=== PATIENT | female | born 1945 | race Caucasian/White ===

== ENCOUNTER 2019-08-23 07:29 | Emergency (ER) | payer MEDICARE ==
[~2019-08-23] VITALS: Ht 165.1 cm; Wt 71.2 kg
[~2019-08-23 07:29] MED LIST: ALLOPURINOL100 MG PO; ASPIRIN81 M1 PO; BACTRIM DS 8001 TA1 PO; FENOFIBRATE160 MG PO; LIPITOR40 MG PO; Lopressor25 MG PO; MACRODANTIN100 MG PO; OXYBUTYNIN5 MG PO; TORADOL10 MG PO; VICODIN ES 7501 TAB PO
[2019-08-23 08:41] LABS: BASO % 0.6 % (0.0-1.0); EOS % 0.6 % (1.0-4.0); HEMATOCRIT 36.1 % (37.0-47.0); HEMOGLOBIN 11.5 g/dl (12.0-16.0); LYMPH # 1.9 10*3/uL (1.3-4.4); LYMPH % 36.6 % (27.0-41.0); MEAN CORPUSCULAR HGB 29.9 pg (27.0-31.0); MEAN CORPUSCULAR HGB CONC 31.9 g/dl (33.0-37.0); MEAN PLATELET VOLUME 10.7 fl (9.6-12.3); MONO # 0.3 10*3/uL (0.1-1.0); MONO % 6.3 % (3.0-9.0); NEUT # 2.9 10*3/uL (2.3-7.9); NEUT % 55.7 % (47.0-73.0); PLATELET COUNT AUTOMATED 262 10*3/uL (130-400); RED BLOOD COUNT 3.84 10*6/uL (4.10-5.10); RED CELL DISTRI WIDTH 15.6 % (0-14.5); WHITE BLOOD COUNT 5.2 10*3/uL (4.8-10.8)
[2019-08-23 08:55] LABS: ALBUMIN 3.9 gm/dl (3.1-4.5); CREATININE 1.2 mg/dL (0.55-1.02); POTASSIUM 4.4 mmol/L (3.5-5.1); TOTAL PROTEIN 6.9 gm/dL (6.4-8.2)
[2019-08-23 09:46] LABS: BILIRUBIN NEGATIVE (NEGATIVE); BLOOD NEGATIVE (NEGATIVE); CLARITY CLOUDY (CLEAR); COLOR YELLOW (YELLOW); GLUCOSE NEGATIVE (NEGATIVE); KETONE NEGATIVE (NEGATIVE); LEUKO ESTERASE 2+ (NEGATIVE); NITRITE POSITIVE (NEGATIVE); UROBILINOGEN 0.2 E.U./dl (0.2-1.0)
[2019-08-23 10:18] LABS: BACTERIA 4+; WBC 41-50 wbc/hpf (0-5)
[2019-08-23] MEDS ORDERED: SEPTDS PO (12:46)
== END 2019-08-23 12:51 | disposition home or self-care (01) ==
LOC: ED 07:29
PROVIDERS: Emergency Medicine
DX: N39.0 Urinary tract infection, site not specified (principal); R07.89 Other chest pain; R06.02 Shortness of breath; R42 Dizziness and giddiness; R25.1 Tremor, unspecified; I10 Essential (primary) hypertension; E78.00 Pure hypercholesterolemia, unspecified; Z79.82 Long term (current) use of aspirin; Z88.6 Allergy status to analgesic agent; Z88.8 Allergy status to other drugs, medicaments and biological substances; Z88.1 Allergy status to other antibiotic agents; Z79.899 Other long term (current) drug therapy

== ENCOUNTER 2019-08-26 15:02 | Inpatient (IN) | payer MEDICARE ==
[~2019-08-26] VITALS: Ht 162.5 cm; Wt 70.1 kg
[~2019-08-26 15:02] MED LIST changes: +SEPTDS PO
[2019-08-26 15:12] VITALS: BP 141/65
[2019-08-26 16:59] LABS: BASO % 0.4 % (0.0-1.0); EOS % 0.7 % (1.0-4.0); HEMATOCRIT 33.2 % (37.0-47.0); HEMOGLOBIN 10.7 g/dl (12.0-16.0); LYMPH # 1.9 10*3/uL (1.3-4.4); LYMPH % 34.7 % (27.0-41.0); MEAN CORPUSCULAR HGB CONC 32.2 g/dl (33.0-37.0); MEAN PLATELET VOLUME 10.1 fl (9.6-12.3); MONO # 0.4 10*3/uL (0.1-1.0); MONO % 7.3 % (3.0-9.0); NEUT # 3.1 10*3/uL (2.3-7.9); NEUT % 56.7 % (47.0-73.0); PLATELET COUNT AUTOMATED 265 10*3/uL (130-400); RED BLOOD COUNT 3.57 10*6/uL (4.10-5.10); RED CELL DISTRI WIDTH 15.3 % (0-14.5); WHITE BLOOD COUNT 5.5 10*3/uL (4.8-10.8)
[2019-08-26 17:09] LABS: ACT PARTIAL THROMBO TIME 25.6 SECONDS (20.0-32.1); INTERNATIONAL NORM RATIO 1.1 (2.0-3.5)
[2019-08-26 17:23] LABS: ALBUMIN 3.8 gm/dl (3.1-4.5); ALKALINE PHOSPHATASE 46 U/L (45-117); BUN 22 mg/dl (7-24); CHLORIDE 104 mmol/L (98-107); CREATININE 1.59 mg/dL (0.55-1.02); LIPASE 199 U/L (73-393); POTASSIUM 4.2 mmol/L (3.5-5.1); SGOT/AST 32 IU/L (3-35); SGPT/ALT 29 U/L (12-78); SODIUM 132 mmol/L (136-145); TOTAL PROTEIN 6.6 gm/dL (6.4-8.2)
[2019-08-26 17:35] LABS: TROPONIN I < 0.015 ng/ml (<0.045)
[2019-08-26 17:46] VITALS: BP 124/49
[2019-08-26 18:46] LABS: BILIRUBIN NEGATIVE (NEGATIVE); BLOOD NEGATIVE (NEGATIVE); CLARITY CLEAR (CLEAR); COLOR YELLOW (YELLOW); GLUCOSE NEGATIVE (NEGATIVE); KETONE NEGATIVE (NEGATIVE); LEUKO ESTERASE NEGATIVE (NEGATIVE); NITRITE NEGATIVE (NEGATIVE); UROBILINOGEN 0.2 E.U./dl (0.2-1.0)
[2019-08-26 18:52] LABS: WBC 0-2 wbc/hpf (0-5)
--- NOTE | 2019-08-26 20:10 | NUR ---
A 74, admitted to , under the services of DANIELLE García DO with a diagnosis of ANXIETY, TAKOTSUBO SYNDROME. Chief complaint is ANXIETY. Patient arrived via bed from ER. Monitor applied. Initial assessment completed. Vital signs taken and recorded. DANIELLE GARCÍA DO notified of admission to the unit. Orders received. See assessment for past medical history, medications and allergies. Patient and/or family oriented to unit. [facility]. Clothing/patient valuable form completed. ANURADHA SALVADOR
--- NOTE | 2019-08-26 20:30 | NUR ---
PT DAUGHTER IN AND HELPING ANSWER QUESTIONS WITH THE PATIENT. SHE NOTES THAT THE PT WAS JUST IN ON WEDNESDAY WITH A UTI AND THAT HER MEDICATIONS ARE THE SAME AND HAVE NOT CHANGED. TALKED ABOUT PT WISHES TO BE A FULL CODE
--- NOTE | 2019-08-26 20:50 | NUR ---
DR BRUCE ON THE FLOOR AND I INFORMED HIM THAT THE MED LIST IS UP TO DATE AND PER DAUGHTER THE PATIENT WAS IN WEDNESDAY WITH A UTI AND IS TAKING MEDS FOR THAT WHICH THEY DID NOT BRING, SO THEY WANT HER TO CONTINUE TAKING MEDICATIONS FOR THAT.
--- NOTE | 2019-08-26 21:01 | NUR ---
CALLED THE ANSWERING SERVICE AND LEFT A MESSAGE FOR CONSULT OF DR DANIELS.
--- NOTE | 2019-08-26 21:09 | NUR ---
DR DANIELS ON PHONE AND UPDATED HIM OF NEW CONSULT. ALSO TOLD HIM OF THE LOW HR AND HE STATES TO JUST KEEP AN EYE ON IT AND THAT HE WILL BE IN TOMORROW TO SEE THE PATIENT
--- NOTE | 2019-08-26 21:30 | NUR ---
PT STATES THAT SHE HAS NOT BEEN GETTING MUCH SLEEP LATELY AND PER HER AND THE DAUGHTER SHE WOULD LIKE TO BE GIVEN SOMETHING TO HELP HER FALL ASLEEP. PRN PO RESTORIL IS GIVEN AT THIS TIME. WILL CONTINUE TO MONITOR, CALL LIGHT WITHIN REACH
[2019-08-27] VITALS: BP 105/51
--- NOTE | 2019-08-27 01:22 | NUR ---
24 HR chart check completed.
--- NOTE | 2019-08-27 04:31 | NUR ---
Patient sleeping. Respirations relaxed and easy. Siderails up . [place] on. ANURADHA SALVADOR
[2019-08-27 06:12] LABS: BASO % 0.9 % (0.0-1.0); EOS % 0.7 % (1.0-4.0); HEMATOCRIT 36.3 % (37.0-47.0); HEMOGLOBIN 11.5 g/dl (12.0-16.0); LYMPH # 1.7 10*3/uL (1.3-4.4); LYMPH % 38.5 % (27.0-41.0); MEAN CELL VOLUME 93.6 fl (81.0-99.0); MEAN CORPUSCULAR HGB 29.6 pg (27.0-31.0); MEAN CORPUSCULAR HGB CONC 31.7 g/dl (33.0-37.0); MEAN PLATELET VOLUME 10.7 fl (9.6-12.3); MONO # 0.3 10*3/uL (0.1-1.0); MONO % 7.3 % (3.0-9.0); NEUT # 2.3 10*3/uL (2.3-7.9); NEUT % 52.4 % (47.0-73.0); PLATELET COUNT AUTOMATED 269 10*3/uL (130-400); RED BLOOD COUNT 3.88 10*6/uL (4.10-5.10); RED CELL DISTRI WIDTH 15.6 % (0-14.5); WHITE BLOOD COUNT 4.4 10*3/uL (4.8-10.8)
[2019-08-27 06:53] LABS: ALBUMIN 3.5 gm/dl (3.1-4.5); CREATININE 1.51 mg/dL (0.55-1.02); PHOSPHOROUS 3.4 mg/dL (2.5-4.9); POTASSIUM 4.7 mmol/L (3.5-5.1); TOTAL PROTEIN 5.8 gm/dL (6.4-8.2)
[2019-08-27 06:59] LABS: THYROID STIM HORMONE (HS) 4.32 uIU/ml (0.358-4.75)
[2019-08-27 07:01] LABS: VITAMIN D, 25-HYDROXY 17.3 ng/mL (30-100)
[2019-08-27 08:00] VITALS: BP 146/54
--- NOTE | 2019-08-27 09:10 | NUR ---
PT MEDICATED WITH ATIVAN FOR ANXIETY WILL MONITOR
--- NOTE | 2019-08-27 10:08 | NUR ---
[employer] Tech in to talk to patient. Patient states lives at HOME with ALONE. There are BASEMENT steps in the home. Physician: TERESA Pharmacy: [facility] Home health services: NONE Patient's level of ADLs: INDEPENDENT Patient has working utilities: YES DME: [facility] Follow-up physician's appointment after d/c: WILL BE MADE BY HOSPITALIST NURSE DIRECTOR ON DISCHARGE Does patient want to access PORTAL?: NO Discharge plan PT LIVES AT HOME ALONE. PT CRYING STATES RECENTLY AND SHE HAS BEEN SO DEPRESSED. PT STATES DAUGHTER CHECKS ON HER FREQUENTLY AND NEXT DOOR NEIGHBOR HELPS HER OUT A LOT. PT STATES SHE WANTS TO RETURN HOME ON DISCHARGE BUT WOULD LIKE SOME HH. SHE IS NOT SURE OF COMPANY SHE WANTS AND WANTS TO TALK TO DAUGHTER BEFORE DECIDING. WILL CONTINUE TO FOLLOW. STATES SHE WILL HAVE A RIDE HOME.. LONNY GREENE
--- NOTE | 2019-08-27 10:53 | NUR ---
DEVIN CALLED AND NOTIFIED OF CONSULT SPOKE WITH BROOKE
[2019-08-27 12:00] VITALS: BP 136/68
[2019-08-27 16:00] VITALS: BP 100/77
[2019-08-27 20:00] VITALS: BP 150/57
--- NOTE | 2019-08-27 21:00 | NUR ---
NOTIFIED PATIENTS DAUGHTER TAMELA PER REQUEST OF PATIENT OF STRESS TEST IN AM, SHE STATED HER MOTHER ALREADY SPOKE WITH HER AND TOLD HER BUT SHE WILL BE UNABLE TO MAKE IT DUE TO WORK, BUT SHE WILL BE DOWN AFTERWARDS.
[2019-08-28] VITALS: BP 144/59
--- NOTE | 2019-08-28 02:23 | NUR ---
24 HR chart check completed.
--- NOTE | 2019-08-28 03:22 | NUR ---
PATIENT UP AMBULATING IN THE [place]. NO DISTRESS NOTED. STATED SHE COULDN'T SLEEP AND JUST WANTED TO STRETCH HER LEGS. CALL LIGHT WITHIN REACH, WILL MONITOR
[2019-08-28 06:22] LABS: BASO % 0.8 % (0.0-1.0); EOS # 0.1 10*3/uL (0.0-0.4); EOS % 1.1 % (1.0-4.0); LYMPH # 1.8 10*3/uL (1.3-4.4); LYMPH % 38.6 % (27.0-41.0); MEAN CELL VOLUME 92.9 fl (81.0-99.0); MEAN CORPUSCULAR HGB 29.3 pg (27.0-31.0); MEAN CORPUSCULAR HGB CONC 31.6 g/dl (33.0-37.0); MEAN PLATELET VOLUME 10.6 fl (9.6-12.3); MONO # 0.3 10*3/uL (0.1-1.0); MONO % 7.2 % (3.0-9.0); NEUT # 2.5 10*3/uL (2.3-7.9); NEUT % 52.1 % (47.0-73.0); PLATELET COUNT AUTOMATED 275 10*3/uL (130-400); RED BLOOD COUNT 4.09 10*6/uL (4.10-5.10); RED CELL DISTRI WIDTH 15.6 % (0-14.5); WHITE BLOOD COUNT 4.7 10*3/uL (4.8-10.8)
[2019-08-28 06:36] LABS: CREATININE 1.71 mg/dL (0.55-1.02)
[2019-08-28 08:00] VITALS: BP 136/56
--- NOTE | 2019-08-28 08:41 | NUR ---
PT RESTING IN BED. NO DISTRESS NOTED. WILL MONITOR
--- NOTE | 2019-08-28 09:00 | NUR ---
case managment visits with patient, she stated she would be returning home when medically stable and has decided she didn't want any home health services, case management will follow
[2019-08-28 12:00] VITALS: BP 145/77
--- NOTE | 2019-08-28 12:16 | NUR ---
INFORMED CONSENT SIGNED FOR LEXISCAN WITH DR. COTA. RESTING EKG NSR, HR 67, BP 130/78. PULSE OX 100% AND LUNGS CLEAR. COMPLETED ONE MINUTE OF LEXISCAN PROTOCOL RECEIVING LEXISCAN 0.4MG OVER 10 SEC[address] ARRHYTHMI[address] OR [address] CHANGES NOTED. PT C/O ODD FEELING. LAST RECOVERY HR 99, BP 124/66. WAITING NUCLEAR SCANNING IN STABLE CONDITION.
[2019-08-28 16:13] VITALS: BP 146/77
--- NOTE | 2019-08-28 19:40 | NUR ---
NOTIFIED DR. ANAND PATIENT AND PATIENTS FAMILY WANTING PATIENT TO GO TO [facility]. BELIEVES SHE WOULD BENEFIT. NOTIFIED DR. ANAND. DR. ANAND TO LET DAY TEAM KNOW.
[2019-08-28 20:00] VITALS: BP 129/65
--- NOTE | 2019-08-28 20:40 | NUR ---
PT RESTING IN BED. RESP-EASY AND REGULAR. NO C/O AT THIS TIME. CALL LIGHT IN REACH.
[2019-08-29] VITALS: BP 101/46
--- NOTE | 2019-08-29 | NUR ---
RESTING IN BED WITH EYES CLOSED; AROUSES EASILY FOR ASSESSMENT. HEP LOCK INTACT TO LEFT WRIST; SITE ASYMPTOMATIC. PT. VOICES NO C/O AT THIS TIME; NO DISTRESS NOTED. CALL LIGHT WITHIN REACH.
--- NOTE | 2019-08-29 03:30 | NUR ---
ASSIST OF 1 UP TO BATHROOM; GAIT SLOW & SOMEWHAT UNSTEADY. ASSISTED BACK TO BED. BED ALARM INTACT. CALL LIGHT WITHIN REACH.
--- NOTE | 2019-08-29 05:20 | NUR ---
RESTING IN BED WITH EYES CLOSED. CALL LIGHT WITHIN REACH.
[2019-08-29 06:18] LABS: BASO % 0.8 % (0.0-1.0); EOS % 0.8 % (1.0-4.0); HEMATOCRIT 35.8 % (37.0-47.0); HEMOGLOBIN 11.5 g/dl (12.0-16.0); LYMPH # 1.8 10*3/uL (1.3-4.4); LYMPH % 34.7 % (27.0-41.0); MEAN CELL VOLUME 91.8 fl (81.0-99.0); MEAN CORPUSCULAR HGB 29.5 pg (27.0-31.0); MEAN CORPUSCULAR HGB CONC 32.1 g/dl (33.0-37.0); MEAN PLATELET VOLUME 10.9 fl (9.6-12.3); MONO # 0.4 10*3/uL (0.1-1.0); MONO % 6.9 % (3.0-9.0); NEUT # 2.9 10*3/uL (2.3-7.9); NEUT % 56.6 % (47.0-73.0); PLATELET COUNT AUTOMATED 281 10*3/uL (130-400); RED CELL DISTRI WIDTH 15.9 % (0-14.5); WHITE BLOOD COUNT 5.2 10*3/uL (4.8-10.8)
[2019-08-29 06:51] LABS: CREATININE 1.53 mg/dL (0.55-1.02); POTASSIUM 4.5 mmol/L (3.5-5.1)
[2019-08-29 08:00] VITALS: BP 135/50
--- NOTE | 2019-08-29 08:40 | NUR ---
PT SITTING UP AT SIDE OF BED EATING BREAKFAST. RESP-EASY AND REGULAR. NO C/O AT THIS TIME. CALL LIGHT IN REACH. SEE SHIFT ASSESSMENT.
--- NOTE | 2019-08-29 09:00 | NUR ---
case management visits with patient, brother present, she stated she would be going to [facility] for a short stay prior to returning home, patient denies any other needs at this time
[2019-08-29 12:00] VITALS: BP 127/66
--- NOTE | 2019-08-29 12:30 | NUR ---
RESTING IN BED. RESP-EASY AND REGULAR. NO C/O AT THIS TIME. CALL LIGHT IN REACH.
[2019-08-29] MEDS ORDERED: IMDUR SA30 MG PO (14:26)
[2019-08-29] MEDS ORDERED: VITAMIN D32000 UNI1 PO (14:26)
[2019-08-29] MEDS ORDERED: METOPROLOL SUCC25 M2 PO ×2 (14:26)
[2019-08-29] MEDS ORDERED: MIRTAZAPINE15 M2 PO (14:26)
[2019-08-29] MEDS ORDERED: PHARMASSURE V500 MCG PO (14:26)
--- NOTE | 2019-08-29 15:49 | NUR ---
Discharge instructions reviewed with patient/BHU. Patient receptive and verbalizes understanding. Follow-up care arranged. Written instructions given to patient/BHU. HEPLOCK REMOVED 2X2 APPLIED. PT BEING DISCHARGED TO [facility]
--- NOTE | 2019-08-29 16:09 | NUR ---
[facility] AND [facility] HERE TO TAKE PT TO [facility] AT THIS TIME. DISCHARGE INSTRUCTIONS GIVEN TO [facility]SE
== END 2019-08-29 16:09 | disposition home health service (06) | DRG 302 ==
LOC: ED 15:02 → EDHOLD 19:17 → 4E 19:17
PROVIDERS: Family Medicine; Physician Assistant; Student in an Organized Health Care Education/Training Program; ADMIT Internal Medicine
PROC: 3E073KZ Introduction of Other Diagnostic Substance into Coronary Artery, Percutaneous Approach (ICD-10-PCS; principal; 2019-08-28)
PROC: 4A02XM4 Measurement of Cardiac Total Activity, External Approach (ICD-10-PCS; principal; 2019-08-28)
DX: I99.8 Other disorder of circulatory system (principal); N17.0 Acute kidney failure with tubular necrosis; E87.1 Hypo-osmolality and hyponatremia; F32.2 Major depressive disorder, single episode, severe without psychotic features; E66.3 Overweight; F41.9 Anxiety disorder, unspecified; D64.9 Anemia, unspecified; I10 Essential (primary) hypertension; E83.41 Hypermagnesemia; E87.8 Other disorders of electrolyte and fluid balance, not elsewhere classified; D72.819 Decreased white blood cell count, unspecified; I25.10 Atherosclerotic heart disease of native coronary artery without angina pectoris; F03.90 Unspecified dementia, unspecified severity, without behavioral disturbance, psychotic disturbance, mood disturbance, and anxiety; E11.9 Type 2 diabetes mellitus without complications; Z68.26 Body mass index [BMI] 26.0-26.9, adult; Z90.49 Acquired absence of other specified parts of digestive tract; Z90.710 Acquired absence of both cervix and uterus; Z82.49 Family history of ischemic heart disease and other diseases of the circulatory system; Z79.82 Long term (current) use of aspirin; Z79.899 Other long term (current) drug therapy; Z88.6 Allergy status to analgesic agent; Z88.1 Allergy status to other antibiotic agents; Z95.1 Presence of aortocoronary bypass graft

== ENCOUNTER 2019-08-29 15:20 | Inpatient (IN) | payer MEDICARE ==
[~2019-08-29] VITALS: Ht 162.5 cm; Wt 68.1 kg
[~2019-08-29 15:20] MED LIST changes: +IMDUR SA30 MG PO; +METOPROLOL SUCC25 M2 PO; +MIRTAZAPINE15 M2 PO; +PHARMASSURE V500 MCG PO; +VITAMIN D32000 UNI1 PO
--- NOTE | 2019-08-29 16:14 | NUR ---
CATHERINE LIVINGSTON a 74 year old F admitted via wheel chair from the ADMITTING as a voluntary admission. Arrived on unit at 1614. ALLERGIES: DEMEROL AND PERCADAN Vital signs are: [id number] 133/69. The client signed the following forms with stated understanding: Authorization For The Release of Medical Information, Clothing List, Consent to Voluntary Admission and Hospitalization, Consent and Release Forms/Receipt of Rights, Acknowledgement of Advance Directive Information, Behavioral Health Consent Form, and Informed Consent of Medications. Admitted under the services of Dr. STEVE OROPEZA,[facility]. A search was conducted and hazardous articles were removed. Client was oriented to the unit. BROOKE MILLER
--- NOTE | 2019-08-29 16:17 | NUR ---
DR. AVILES NOTIFIED OF NEW ADMISSION, MEDICATIONS AND DIAGNOSIS UPDATED FOR REVIEWED. PATIENT WILL BE UNDER THE CARE OF DR. MANN.
[2019-08-29 16:21] VITALS: BP 133/69
[2019-08-29 16:34] VITALS: BP 133/69
[2019-08-29 20:00] VITALS: BP 120/56
--- NOTE | 2019-08-29 20:34 | NUR ---
EVENING GROUP/BINGO PT ATTENDED GROUP [facility] THROUGH. PT ENTERED ROOM AND BEGAN CRYING TO THIS STAFF STATING "I AM SORRY FOR BEING UPSET, I JUST DONT TRUST PEOPLE AFTER WHAT HAPPENED THE LAST TIME I WAS IN A HOSPITAL" PT WAS ABLE TO RELAX AND JOIN IN PEER CONVERSATION AND OBSERVED THE BINGO GAME. PT CHOSE NOT TO PLAY BINGO AT THIS TIME. PT WILL CONTINUE TO ATTEND AN DPARTICIPATE IN FUTRUE GROUP SESSIONS TO BEST OF PT ABILITY.
--- NOTE | 2019-08-29 20:49 | NUR ---
DR ANAND ON UNIT TO SEE PT FOR MEDICAL CONSULT
--- NOTE | 2019-08-29 22:00 | NUR ---
PT WEEPY, FLAT, ISOLATIVE THIS EVENING, SHORT COMMUNICATION WITH SIMPLE YES OR NO ANSWERS DURING ASSESSMENT. PT UNABLE TO ANSWER DATE, AND CONTINUED TO STATE "IT'S TOO HARD, I CAN'T DEAL WITH THIS ALL, ITS SO CONFUSING. " PT STATED THAT SHE HAD NO CLUE IT WOULD BE THIS HARD. PT CONTIUED TO REPEAT THIS WHEN ATTEMPTING TO ASSESS. PT WENT BED SHORTLY AFTER MEDICATION PASS THIS EVENING.
[2019-08-30 06:22] LABS: BASO % 0.7 % (0.0-1.0); EOS # 0.1 10*3/uL (0.0-0.4); EOS % 1.7 % (1.0-4.0); HEMATOCRIT 36.9 % (37.0-47.0); HEMOGLOBIN 11.8 g/dl (12.0-16.0); LYMPH # 1.7 10*3/uL (1.3-4.4); LYMPH % 42.2 % (27.0-41.0); MEAN CELL VOLUME 92.3 fl (81.0-99.0); MEAN CORPUSCULAR HGB 29.5 pg (27.0-31.0); MEAN PLATELET VOLUME 10.7 fl (9.6-12.3); MONO # 0.3 10*3/uL (0.1-1.0); MONO % 7.9 % (3.0-9.0); NEUT # 1.9 10*3/uL (2.3-7.9); NEUT % 47.3 % (47.0-73.0); PLATELET COUNT AUTOMATED 262 10*3/uL (130-400); RED CELL DISTRI WIDTH 15.8 % (0-14.5); WHITE BLOOD COUNT 4.1 10*3/uL (4.8-10.8)
[2019-08-30 06:38] LABS: CREATININE 1.54 mg/dL (0.55-1.02); POTASSIUM 4.5 mmol/L (3.5-5.1)
[2019-08-30 06:44] LABS: THYROID STIM HORMONE (HS) 5.96 uIU/ml (0.358-4.75)
[2019-08-30 08:00] VITALS: BP 141/66
--- NOTE | 2019-08-30 08:00 | NUR ---
Treatment Plan meeting was held with Dr. Torres, LAURITA Kwan, RN, AT, CARBURIZER-S and Senior Director Creative Services in attendance. Plan for discharge next week. Pt. came to [facility] from Home. Will follow.
[2019-08-30 08:33] LABS: VITAMIN D, 25-HYDROXY 14.9 ng/mL (30-100)
--- NOTE | 2019-08-30 08:47 | NUR ---
AND ELAYNE PMHNP-BC ON UNIT TO SEE PT AT THIS TIME. UPDATE GIVEN.
--- NOTE | 2019-08-30 09:45 | NUR ---
AND TEAM ON UNIT TO SEE PT AT THIS TIME.
--- NOTE | 2019-08-30 11:54 | NUR ---
AM GROUP PT ATTENDED MORNING GROUP THERAPY AND PARTICIPATED IN ALL ACTIVITIES. PT IS PLEASANTLY CONFUSED AND ONLY HAD A TEARFUL MOMENT ONCE. PT WAS EASILY REDIRECTABLE. PT EXHIBITED LITTLE ANXIETY WHILE IN GROUP.
--- NOTE | 2019-08-30 12:53 | NUR ---
ON UNIT TO SEE PT AT THIS TIME FOR COUNSELING.
--- NOTE | 2019-08-30 14:37 | NUR ---
1:1 PM SAT WITH PT WHO IS MILDLY CONFUSED AND TEARFUL. PT STATED, "I'M GLAD YOU GIRLS TALKED ME INTO COMING HERE. WILL I EVER FEEL GOOD AGAIN? BACK TO MYSELF?" PT WAS ASSURRED THAT SHE WAS IN THE MIDDLE OF THE GRIEVING PROCESS AND THAT WE WERE HERE TO HELP HER TO FEEL BETTER. PT WAS REASSURRED AND GIVEN SOME COPING TECHNIQUES FOR WHEN SHE WAS FEELING OVERWHELMED. PT STATED, "I DON'T LIKE THIS FEELING" PT IS RECEPTIVE TO COPING STRATEGIES.
--- NOTE | 2019-08-30 15:04 | NUR ---
P- CONFUSION. PERIODS OF TEARFULNESS AND ANXIETY NOTED AT TIMES. DIFFICULTY COPING WITH RECENT LOSS OF I- ORIENTATION, MOOD AND BEHAVIOR ASSESSED. ASSESSED PT FOR SI/HI, INTENT OR PLAN. ASSESSED PT FOR S/S HALLUCINATIONS, PARANOIA AND/OR DELUSIONS NOTED. MEDICATIONS ADMINISTERED PER PHYSICIAN'S ORDERS. ASSISTANCE WITH ADL CARE PROVIDED NEEDED. ENCOURAGED PT TO ATTEND AND PARTICIPATE IN [facility] GROUPS AND ACTIVITIES. R- PT IS ALERT AND ORIENTED TO PERSON AND PLACE, NOT TO TIME. PT ABLE TO STATE SHE IS HERE FOR HELP DEALING WITH HER "EMOTIONS" AFTER LOSING HER . CONFUSION NOTED AT TIMES. MEMORY GAPS NOTED. RESPS EASY AND EVEN ON ROOM AIR. MOOD IS DEPRESSED, PERIODS OF TEARFULNESS AND INCREASED ANXIETY NOTED. ABLE TO VERBALLY CALM AND REDIRECT PT THIS DATE. EMOTIONAL SUPPORT PROVIDED. SPEECH IS SOFT, COHERENT, ABLE TO MAKE NEEDS KNOWN WITHOUT DIFFICULTY. PT DENIES SI/HI, INTENT OR PLAN. PT DENIES HALLUCINATIONS, NO RESPONSE TO INTERNAL STIMULI NOTED. NO PARANOIA OR DELUSIONS NOTED. PT IS CALM, PLEASANT AND COOPERATIVE. INTERACTIVE WITH STAFF AND PEERS. AMBULATORY WITH STEADY GAIT. NO DISTRESS NOTED. MEDICATION COMPLIANT WITHOUT DIFFICULTY. P- PLAN TO CONTINUE CURRENT TREATMENT, CONTINUE TO MONITOR MOOD AND BEHAVIORS, PROVIDE APPROPRIATE REORIENTATION, REDIRECTION AND 1:1 NEEDED. CONTINUE TO ENCOURAGE MEDICATION COMPLIANCE WELL GROUP ATTENDANCE AND PARTICIPATION.
--- NOTE | 2019-08-30 15:38 | NUR ---
Met with pt individually. Pt shared about her recent loss of her . Pt was not able to provide the exact number of years that she was to her but stated that it was over 50 years. Pt was tearful at times throughout meeting. Discussed grieving with pt and the grief process. Validated to pt that grieving is very personalized. Pt shared that she understands that people mean well when they continually ask her how she is doing with the loss, but that the asking only causes additional pain for pt. Spoke to pt about grief counseling and grief support groups. Pt is hesitant to commit to either. Pt stated that she believes that she only needs the support of her family. This marine underwriter noted mild memory loss in pt, as pt repeated herself at times. Pt was pleasant and appreciative. Will plan to speak to pt again about community resources.
[2019-08-30 19:32] VITALS: BP 113/60
--- NOTE | 2019-08-30 23:38 | NUR ---
P: WEEPY, DEPRESSED, GRIEVING, POOR COPING SKILLS I: EDUCATE PT ON DEPRESSION, GRIEVING, MINDFULNESS THIS EVENING, DID A MINDFULLNESS EXCERCISE TO ASSIST WITH DISTRACTING WHEN SHE BECOMES UPSET. ALSO DISCUSSED HOW TO RECOGNIZE WHEN THESE MOMENTS APPROACH HER. R: PT REACTIVE TO ALL PRACTICE, SPOKE IN LENGTH OF HOW SPOUSES HAD AFFECTED HER AND INCREASED ANXIETY. PT STATEES SHE FEELS LIKE SHE IS LEARING HERE BUT THAT SHE KNOWS SHE IS BETTER OFF THEN SOME OF THESE PATIENTS. ENCOURAGED HER TO FIND THE GOOD IN EACH SITUATION P: CONTINUE TO MONITOR 15 MIN CHECKS, CONTINUE WITH MEDICATION EDUCATION AND COPING SKILLS. PT AMBULATES ADLIB WITH STEADY GAIT. REQUIRES SOME PROMPTING FOR SCHEDULE.
--- NOTE | 2019-08-31 04:29 | NUR ---
PT SLEPT SINCE 2229, WITH NO AWAKENINGS
[2019-08-31 07:30] LABS: BASO % 0.7 % (0.0-1.0); EOS # 0.1 10*3/uL (0.0-0.4); EOS % 2.1 % (1.0-4.0); HEMATOCRIT 37.2 % (37.0-47.0); HEMOGLOBIN 11.8 g/dl (12.0-16.0); LYMPH # 1.8 10*3/uL (1.3-4.4); LYMPH % 43.1 % (27.0-41.0); MEAN CELL VOLUME 92.8 fl (81.0-99.0); MEAN CORPUSCULAR HGB 29.4 pg (27.0-31.0); MEAN CORPUSCULAR HGB CONC 31.7 g/dl (33.0-37.0); MEAN PLATELET VOLUME 10.4 fl (9.6-12.3); MONO # 0.4 10*3/uL (0.1-1.0); MONO % 9.6 % (3.0-9.0); NEUT # 1.9 10*3/uL (2.3-7.9); NEUT % 44.3 % (47.0-73.0); PLATELET COUNT AUTOMATED 280 10*3/uL (130-400); RED BLOOD COUNT 4.01 10*6/uL (4.10-5.10); RED CELL DISTRI WIDTH 15.7 % (0-14.5); WHITE BLOOD COUNT 4.3 10*3/uL (4.8-10.8)
[2019-08-31 08:00] VITALS: BP 110/51
[2019-08-31 08:04] LABS: CREATININE 1.57 mg/dL (0.55-1.02); POTASSIUM 4.7 mmol/L (3.5-5.1)
--- NOTE | 2019-08-31 09:00 | NUR ---
Treatment Plan meeting was held with Dr. Brian RN and Boat Puller in attendance. Plan for discharge next week. Pt. will return home at [place]arge.
--- NOTE | 2019-08-31 10:07 | NUR ---
DR MCMAHON ON UNIT TO ASSESS PT, UPDATE PROVIDED.
--- NOTE | 2019-08-31 11:37 | NUR ---
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 PT CONTRIBUTED TO THE CONVERSATION AND WAS RELAVENT AND ON TOPIC. PT HAD NO EPISODES OF CRYING OR EXHIBITED ANY ANXIETY WHILE IN GROUP.
--- NOTE | 2019-08-31 15:40 | NUR ---
PM GROUP/FINGER PAINTING PT ATTENDED AFTERNOON GROUP THERAPY AND PARTICIPATED IN ALL ACTIVITIES. PT WAS ENGAGED AND ON TASK. PT EXPRESSED NO ANXIETY WHILE IN GROUP.
--- NOTE | 2019-08-31 15:46 | NUR ---
PT CALM, PLEASANT, INTERACTIVE WITH THIS NURSE. PT DISPLAYS NO TEARFUL EPISODES AT THIS TIME. PT HAS BEEN MEDICATION COMPLIANT, PARTICIPATES IN GROUP, NO ADVERSE MOODS OR BEHAVIORS NOTED.
[2019-08-31 19:43] VITALS: BP 134/56
--- NOTE | 2019-08-31 21:00 | NUR ---
STATES SHE HAD A GOOD DAY AND READY TO RETURN HOME. DISCUSSED COPING MECHANISMS, MEDICATIONS AND FUTURE GOALS. SNACKS PROVIDED, PO FLUIDS PROVIDED. WILL CONTINUE TO MONITOR FOR CHANGES IN BEHAVIOR/MOOD AND MONITOR SAFETY Q 15 MINUTES AND PRN
--- NOTE | 2019-09-01 03:26 | NUR ---
24 HR chart check completed.
--- NOTE | 2019-09-01 06:01 | NUR ---
SLEPT 6 INTERUPTED HOURS
[2019-09-01 07:42] VITALS: BP 130/50
--- NOTE | 2019-09-01 07:59 | NUR ---
Patient eating quietly with no c/o discomfort. Respirations easy and regular. Vital signs stable. No overt distress. MUNDO MAURICIO
--- NOTE | 2019-09-01 08:00 | NUR ---
Treatment plan meeting was held with LAURITA Kwan RN, AT, NARCOTICS DETECTIVE-S and Project Admin in attendance. Plan for discharge next week. At this point Pt. is wishing to return home.
--- NOTE | 2019-09-01 11:34 | NUR ---
AM GROUP PT ATTENDED MORNING GROUP THERAPY AND PARTICIPATED BY COLORING AND WORKING ON HER "NAME" HACK SAW OPERATOR. PT WAS QUIET AND ON TASK. PT IS PLEASANTLY CONFUSED. PT EXPRESSED NO ANXIETY WHILE IN GROUP.
--- NOTE | 2019-09-01 13:36 | NUR ---
PT STATES SHE FEELS BETTER AND SHE IS READY TO GO HOME. PT ENCOURAGED TO VERBALIZE FEELINGS, PROVIDED WITH EMOTIONAL SUPPORT. PT STATES SHE FEELS MUCH BETTER. STATES SHE HAS A DAUGHTER THAT LIVES CLOSE BY AND A NEIGHBOR THAT LIVES "RIGHT UP THE YARD" THAT ARE THERE FOR HER. WILL CONTINUE TO PROVIDE EMOTIONAL SUPPORT AND SPEAK WITH PT. WILL CONTINUE TO MONITOR PT Q15 MIN PER POLICY.
--- NOTE | 2019-09-01 15:21 | NUR ---
Spoke with Pt. daughter Nandini via telephone. Pt. does very well at home normally does not drive due to forgetfulness. Offered Home health Services and daughter agrees that patient may need services for a while to adjust with new medications. Orders received from Dr. Torres for Home Health Referral. Daughter requests [facility]. Spoke with Teresa. Faxed Demographics, H&P and Medication List. Will follow next week.
--- NOTE | 2019-09-01 15:48 | NUR ---
Patient stated that she is feeling much better than when she was first admitted. Pt stated that it is a relief to be able to sleep. Pt was interacting appropriately with her peers and voicing encooragement to them.
[2019-09-01 20:00] VITALS: BP 126/52
--- NOTE | 2019-09-02 03:31 | NUR ---
P-PARANOID, CONFUSION I-REDIRECTION WITH 1:1 THERAPEUTIC INTERVENTIONS AND PRESENT REALITY. EDUCATE AND ENCOURAGE MEDICATION COMPLIANCE R-PATIENT MEDICATION COMPLIANT. PATIENT ABLE TO MAKE NEEDS KNOWN THROUGHTOUT SHIFT. PATIENT PROVIDED FLUIDS AT HS BUT DECLINED. PATIENT WITH NO SUICIDAL OR HOMICIDAL IDEATIONS. PATIENT WITH NO HALLUCINATIONS. PATIENT WITH PARANOID DELUSIONS AT TIMES AND FEARFUL ABOUT NOT BEING ABLE TO TALK TO HER DAUGHTER AFTER 2100. PATIENT AMBULATORY ON UNIT WITH STEADY GAIT. P-CONTINUE TO ENCOURAGE MEDICATION COMPLIANCE, CONTINUE TO PRESENT REALITY, ENCOURAGE GROUP THERAPY WHILE AWAKE
--- NOTE | 2019-09-02 06:01 | NUR ---
PATIENT SLEPT 8 HOURS OF INTERRRUPTED SLEEP THROUGHOUT SHIFT. Q 15 MINUTE CHECKS MAINTAINED. 24 HR chart check completed.
[2019-09-02 07:38] VITALS: BP 128/55
--- NOTE | 2019-09-02 08:41 | NUR ---
DR MANN ON UNIT TO ASSESS PT, UPDATE PROVIDED.
--- NOTE | 2019-09-02 11:42 | NUR ---
KARINA LAWSON/LESLEY PT ATTENDED AND PARTICIPATED IN ALL ACTIVITY'S. PT PLEASANT AND ON TASK WITH NO ANXIETY OR GRIEF EXPRESSED AT THIS TIME. PT WILL CONTINUE TO ATTEND AN DPARTICIPATE IN FUTURE GROUP SESSIONS.
--- NOTE | 2019-09-02 15:51 | NUR ---
PM GROUP/ART/GAME PT ATTENDED AND PARTICIPATED IN ALL GROUP ACTIVITY. PT PLEASANT AND ON TASK WITH NO GRIEF OR ANXIETY DISPLAYED AT THIS TIME. PT WILL CONTINUE TO ATTEND AN DPARTICIPATE IN FUTURE GROUP SESSIONS TO BEST OF ABILITY.
--- NOTE | 2019-09-02 16:27 | NUR ---
P: PT TEARFUL AND ANXIOUS AT TIMES. I: PROVIDE EMOTIONAL SUPPORT AND 1:1 FOR PT TO VOICE FEELINGS, ENCOURAGE GROUP PARTICIPATION AND SOCIALIZATION R: PT ALERT TO PERSON, PLACE AND TIME, INTERMITTENT CONFUSION AND SHORT TERM MEMORY DEFICITS NOTED. PT CALM. PT PARTICIPATED IN GROUPS/ACTIVITIES THROUGHOUT THE DAY, INTERACTIVE WITH STAFF AND PEERS. PT GOAL DIRECTED TOWARDS DISCHARGE STATING "IT'S JUST ALOT FOR ME HERE, THERE IS SO MANY PEOPLE AND SO MUCH COMMOTION GOING ON, I REALLY JUST WANT TO GO HOME AND BE WITH MY FAMILY." NO HALLUCINATIONS OR DELUSIONS NOTED. PT DENIES ANY SUICIDAL THOUGHTS. PT AMBULATORY THROUGHOUT UNIT, GAIT STEADY. PT CONTINENT OF BOWEL AND BLADDER. PT SHOWERED THIS SHIFT. P: MONITOR PT BEHAVIORS ON Q15 MIN SAFETY CHECKS, ENCOURAGE MED COMPLIANCE AND PROVIDE MED EDUCATION, ENCOURAGE GROUP PARTICIPATION AND SOCIALIZATION, PROVIDE EMOTIONAL SUPPORT AND 1:1 FOR PT TO VOICE FEELINGS.
[2019-09-02 20:00] VITALS: BP 142/70
--- NOTE | 2019-09-03 04:31 | NUR ---
P-ANXIOUS, PREOCCUPIED WITH OTHER PEERS. PT STATED THAT SHE GETS FEARFUL BECAUSE "THERE IS TOO MUCH GOING ON HERE SOMETIMES WITH THE NOISE AND YELLING OUT" I-PROVIDED 1:1 WITH THERAPEUTIC INTERVENTIONS. PROVIDE SUPPORT WITH REASSURANCE OF SAFETY. ENCOURAGE MEDICATION COMPLIANCE AND EDUCATE. MONITOR SLEEP. R- "AWE THANK YOU HONEY, I REALLY APPRECIATE WHAT ALL YOU GIRLS DO FOR ME". PT WITH CALM DEMEANOR NOTED AFTER INTERVENTIONS PROVIDED. PT PLEASANT AND INTERACTIVE. PT WALKING HALLWAY WITH A PEER, AMBULATORY WITH STEADY GAIT. PT INDEPENDENT IN ADL'S, CONTINENT OF BOWEL AND BLADDER. PT MEDICATION COMPLIANT WITHOUT DIFFICULTY AFTER REVIEW. PT DENIES SI/HI, HALLUCINATIONS, OR PAIN. PT RESTING QUIETLY WITH EYES CLOSED, NO SIGNS OR SYMPTOMS OF DISTRESS NOTED. P-CONTINUE TO MONITOR MOODS AND BEHAVIOR. PROVIDE 1:1 WITH SUPPORT. ENCOURAGE MEDICATION AND EDUCATE. MAINTAIN Q 15 MIN CHECKS.
--- NOTE | 2019-09-03 05:23 | NUR ---
24 HOUR CHART CHECK COMPLETED.
--- NOTE | 2019-09-03 06:33 | NUR ---
PATIENT OBSERVED ON Q 15 MIN CHECKS TO HAVE SLEPT APPROX 8 HOURS UNINTERRUPTED WITH NO AWAKENINGS OR SIGNS AND SYMPTOMS OF DISTRESS NOTED.
[2019-09-03 07:54] VITALS: BP 116/54
--- NOTE | 2019-09-03 08:49 | NUR ---
DR MCMAHON ON UNIT TO ASSESS PT, UPDATE PROVIDED.
--- NOTE | 2019-09-03 12:01 | NUR ---
AM GROUP/EXERCISE/STORY/ART PT IN ATTENDANCE AND PARTICIPATED IN ALL GROUP ACTIVITY. PT PLEASANT AND ON TASK WITH NO ANXIETY OR GRIEF EXPRESSED AT THIS TIME. PT WILL CONTINUE TO ATTEND AN DPARTICPATE IN FUTURE GROUP SESSION.
--- NOTE | 2019-09-03 12:38 | NUR ---
P: PT ANXIOUS AT TIMES THROUGHOUT THE SHIFT. I: PROVIDE LOW STIMULATION ENVIRONMENT FOR PT TO CALM, ADMINISTER SCHEDULED PO MEDS, OFFER DIVERSIONAL ACTIVITIES, PROVIDE EMOTIONAL SUPPORT AND 1:1 FOR PT TO VOICE FEELINGS R: PT ALERT TO PERSON, PLACE, TIME AND SITUATION, INTERMITTENT CONFUSION NOTED. PT MED COMPLIANT WITHOUT DIFFICULTY, MED EDUCATION PROVIDED. AFTER ADMINISTERING AM PO MEDS PT STATED "THAT MEW MEDICATION YOU GAVE ME FOR ANXIETY SEEMS TO HAVE HELPED. WILL YOU GIVE MY DAUGHTER A LIST OF MY MEDS SO SHE KNOWS WHAT I TAKE". PT INTERACTIVE WITH STAFF AND PEERS, PLEASANT AND COOPERATIVE. PT AMBULATORY THROUGHOUT UNIT, GAIT STEADY. PT CONTINENT OF BOWEL AND BLADDER. NO HALLUCINATIONS OR DELUSIONS NOTED. PT DENIES ANY SUICIDAL THOUGHTS OR BEHAVIORS. P: PROVIDE EMOTIONAL SUPPORT AND 1:l FOR PT TO VOICE FEELINGS, ENCOURAGE MED COMPLIANCE AND PROIVDE MED EDUCATION, PROVIDE LOW STIMULATION ENVIRONMENT FOR PT TO CALM, OFFER DIVERSIONAL ACTIVITIES AND MONITOR PT BEHAVIORS ON Q15 MIN SAFETY CHECKS.
[2019-09-03 19:51] VITALS: BP 114/67
--- NOTE | 2019-09-03 19:52 | NUR ---
PT IN ROOM RESTING QUIETLY, DID NOT WANT SNACK AT THIS TIME. PT STATED SHE IS FEELING LESS ANXIOUS AND IS READY TO GO HOME. NO COMPLAINT OF PAIN OR DISCOMFORT AT THIS TIME
--- NOTE | 2019-09-04 02:51 | NUR ---
PT SLEEPING QUIETLY IN HER ROOM WITHOUT DIFFICULTY, NO SI/HI OR DELUSIONS. PT CONTINUES WITH ST MEMORY LOSS AT TIMES, WILL REDIRECT CONVERSATIONS AWAY FROM TOPIC IF SHE DOESN'T KNOW THE ANSWER. SHE IS AWARE OF MEMORY GAPS, TOLERATES WELL CONTINUE TO MONIOTR
--- NOTE | 2019-09-04 05:24 | NUR ---
PT SLEPT 8+ HOURS 24 HR chart check completed.
--- NOTE | 2019-09-04 08:00 | NUR ---
Treatment Plan meeting was held with LAURITA Kwan, RN, AT, INSPECTOR PROCESS-S and Rehabilitation Services Manager in attendance. Plan for discharge Wednesday/Wednesday with return home. Referral has been faxed to [facility] at Request of Daughter.
[2019-09-04 08:15] VITALS: BP 142/74
--- NOTE | 2019-09-04 10:05 | NUR ---
DR. MILTON ON UNIT TO ASSESS PATIENT.
--- NOTE | 2019-09-04 11:42 | NUR ---
AM GROUP PT ATTENDED MORNING GROUP THERAPY WHICH WAS GEARED TOWARDS THOSE MORE COGNITIVELY ABLE. PT ENGAGED IN DISCUSSION OF HOW TO "DE STRESS" IN STRESSFUL SITUATIONS AND USING THE 5 SENSES. PT WAS RECEPTIVE AND SHARED WITH THE GROUP THOUGHTS THAT WERE RELEVENT TO THE TOPIC. PT WAS WEEPY AT THE START BUT EXHIBITED NO ANXIETY WHILE IN GROUP.
--- NOTE | 2019-09-04 14:10 | NUR ---
P: TEARFUL AND ANXIOUS, DEPRESSED MOOD. I: ONE ON ONE FOR EMOTIONAL SUPPORT, ENCOURAGE GROUP SESSION AND SOCIAL INTERACTIONS. R: EFFECTIVE. PATIENT IS ALERT TO PERSON, PLACE AND SITUATION; ABLE TO VOICE NEEDS. MEMORY GAPS NOTED. DENIES ANY HALLUCINATIONS, DELUSIONS, HI/SI OR PAIN. MOOD IS ANXIOUS, DEPRESSED AND TEARFUL AT TIMES. INTERACTIVE WITH STAFF AND OTHER PATIENTS. PARTICPATES IN GROUP SESSION. IF IN ROOM THAT IS TOO LOUD. PATIENT WILL GO TO QUIET ROOM. MEDICATION COMPLAINT WITH EDUATION PROVIDED. Q 15 MINUTE SAFETY CHECKS MAINTAINED. ONE PERSON VERBAL CUEING FOR ACTIVITIES OF DAILY LIVING, CONTINENT OF BOWEL AND BLADDER. SET UP FOR MEALS, INTAKES ARE GOOD WITH ADEQUATE FLUIDS. AMBULATORY WITH STEADY GAIT. P: CONTINUE TO MONITOR MOOD, SLEEPING PATTERN AND APPETITE. PROVIDE ONE ON ONE, ENCOUAGE GROUP PARTICIPATION.
--- NOTE | 2019-09-04 15:11 | NUR ---
Shift chart check completed.
--- NOTE | 2019-09-04 15:34 | NUR ---
Met with pt for individual session this afternoon. Pt was tearful at times and would state that she was embarrassed because of this. Discussed pt's grieving over the loss of her . Validated pt's emotions and educated pt about the grief process. Asked pt what assisted pt in the past when she grieved the loss of her parents and baby. Discussed this further. Continued to allow pt to express herself, empathized, and offered support. Pt also shared that she was upset that she was not able to talk to her brother who called. RN obtained phone number of a different brother "Michele." Assisted pt in making a call to Michele. Pt had a lengthy coversation with Michele. Met with pt after phone call finished. Pt stated that she enjoyed speaking with her brother. Pt spoke further about her family and spoke of the support that they provide to her. Discussed pt's discharge plan. Pt is willing to have VNA and follow-up at [facility]. Pt denied the need for grief support group. Pt was pleasant throughout session. Noted short term memory loss in pt as she would repeat herself. Pt continues to struggle with the loss of her . Pt is voicing the desire to feel better and "like myself again." Pt denies suicidal ideations stating she would never hurt herself or anyone else.
--- NOTE | 2019-09-04 15:50 | NUR ---
PM GROUP PT WAS IN WITH SW FOR MOST OF AFTERNOON GROUP THERAPY. PT ENTERED GROUP BUT WAS UNABLE TO PARTICIPATE BECAUSE SHE WAS "TOO UPSET" PT OPTED TO COLOR INSTEAD. PT WAS QUIET AND ON TASK.
--- NOTE | 2019-09-04 19:11 | NUR ---
PATIENT CONTINUES TO REFUSE SKIN ASSESSMENT, DENIES ANY OPEN AREA.
[2019-09-04 19:38] VITALS: BP 125/66
--- NOTE | 2019-09-04 20:56 | NUR ---
EVENING GROUP/MLK DISCUSSION PT ATTENDED AND PARTICIPATED IN DISCUSSION. PT PLEASNAT AND ON TASK WITH NO GRIEF OR ANXIETY EXPRESSED AT THIS TIME. PT WILL CONTINUE TO ATTEND AN DPARTICIPATE IN FUTURE GROUP SESSIONS.
--- NOTE | 2019-09-04 22:36 | NUR ---
P-ANXIOUS, MEMORY DEFICIT, CONCERNED ABOUT PEERS I: REDIRECT, PROVIDE 1:1 WITH STAFF, TALK ABOUT HOW TO DECREASE AND MINIMALIZE OR REDIRECT SELF FROM ANXIOUS THOUGHTS. PT REASSURED OF SAFETY OF PEERS, R: PT REQUESTED TO KEEP DOOR SHUT UNTIL SPECIFIC PEERS WERE IN BED DUE TO WANDERING MADE HER NERVOUS. REASSURED OF SAFETY, CONTINUE WITH 15 MIN CHECKS PER POLICY AND LINE OF SIGHT OF PT DOOR, PT AGREED HER ANXIETY DECREASES HER MEMORY STATING "IT GETS ALL CLOGGED UP" PT ALERT X3 WHEN TALKING THIS EVENING ENJOYS INTERACTING WITH PEERS AND STAFF OF SAME COGNITION P: CONTINUE TO ENCOURAGE COPING SKILLS, ADDRESS GREIVING CONCERNS FOR SPOUSE, REASSURE OF NORMALCY OF GREIVING PROCESS, NO SI/HI OR DELUSIONS NOTED. PT MEDICATION COMPLIANT WITH UNDERSTANDING OF MEDICATIONS FUNCTIONS BUT NOT AWARE OF SPECIFIC NAMES WITHOUT REMINDERS. CONTINUE TO MONITOR 15 MIN CHECKS, MOODS AND BEHAVIORS
--- NOTE | 2019-09-05 06:37 | NUR ---
PT SLEPT 5+ HOURS WITH INTERUPTIONS DUE TO PEERS AWAKE DURING THE NIGHT. 24 HR chart check completed.
[2019-09-05 07:50] VITALS: BP 117/56
--- NOTE | 2019-09-05 08:00 | NUR ---
Patient sitting quietly with no c/o discomfort. Respirations easy and regular. Vital signs stable. No overt distress. MUNDO MAURICIO
--- NOTE | 2019-09-05 08:00 | NUR ---
Treatment Plan meeting was held with Dr. Torres, LAURITA Kwan, RN, AT, MACHINE PACKER-S and Mental Health Nurse Practitioner in attendance. Plan for discharge Wednesday. Pt. will return home at discharge. [facility] to follow.
--- NOTE | 2019-09-05 11:45 | NUR ---
AM GROUP/WORRY BEADS PT ATTENDED MORNING GROUP THERAPY AND PARTICIPATED IN ALL ACITIVITIES. PT WAS FOCUSED AND ON TASK. PT EXHIBITED NO WEEPING OR ANXIETY WHILE IN GROUP.
--- NOTE | 2019-09-05 15:26 | NUR ---
When meeting with pt today, pt reported that she was feeling much better today. Pt stated that she hasn't been crying as much and she is pleased about that. Also observed pt being supportive of another pt.
--- NOTE | 2019-09-05 15:41 | NUR ---
PM GROUP PT ATTENDED AFTERNOON GROUP THERAPY AND PARTICIPATED BY DOING A WORDSEARCH. PT WAS QUIET AND ON TASK. PT EXHIBITED NO WEEPING OR ANXIETY WHILE IN GROUP
--- NOTE | 2019-09-05 17:45 | NUR ---
PT CALM, PLEASANT, INTERACTIVE WITH THIS NURSE. PT HAS BEEN MEDICATION COMPLIANT, PARTICIPATES IN GROUP, NO ADVERSE MOODS OR BEHAVIORS NOTED. PT STATES SHE IS READY TO LEAVE TOMORROW AND HAS BEEN SOMEWHAT TEARFUL SAYING GOODBYE TO PEERS AND STAFF. PT DENIES ANXIETY OR DEPRESSED MOOD. STATES SHE JUST "CAN'T WAIT TO GO HOME". WILL CONTINUE TO MONITOR Q15 MIN PER POLICY FOR SAFETY.
[2019-09-05 20:00] VITALS: BP 125/65
[2019-09-05 21:50] VITALS: BP 126/70
--- NOTE | 2019-09-06 01:31 | NUR ---
NO ADVERSE BEHAVIORS NOTED. PATIENT ALERT TO ORIENTED X3. PT CALM, COOPERATIVE, AND INTERACTIVE. MOOD STABLE. PT MEDICATION COMPLIANT WITHOUT DIFFICULTY AFTER REVIEW. PT DENIES SI/HI, HALLUCINATIONS, ANXIETY, OR PAIN. NO PARANOIA/DELUSIONS NOTED. PT IN ROOM AND BED RESTING QUIETLY AT THIS TIME, NO SIGNS OR SYMPTOMS OF DISTRESS NOTED. PLAN IS TO CONTINUE TO MONITOR MOOD AND BEHAVIORS. PROVIDE 1:1 WITH THERAPEUTIC INTERVENTIONS. ENCOURAGE MEDICATION COMPLIANCE AND EDUCATE. MAINTAIN Q 15 MIN CHECKS.
--- NOTE | 2019-09-06 04:26 | NUR ---
24 HOUR CHART CHECK COMPLETED.
--- NOTE | 2019-09-06 05:58 | NUR ---
PATIENT OBSERVED ON Q 15 MIN CHECKS TO HAVE SLEPT APPROX 6 HOURS WITH NO AWAKENINGS OR SIGNS AND SYMPTOMS OF DISTRESS NOTED.
[2019-09-06 07:37] VITALS: BP 139/49
--- NOTE | 2019-09-06 08:39 | NUR ---
PT AWAKE, ALERT AND VERBAL. PLEASANT. RESPS EASY AND EVEN ON ROOM AIR. NO DISTRESS NOTED. AND ELAYNE PMHNP-BC ON UNIT TO SEE PT AT THIS TIME. UPDATE GIVEN.
--- NOTE | 2019-09-06 09:22 | NUR ---
NO ADVERSE MOODS OR BEHAVIORS THIS MORNING. PT IS ALERT AND ORIENTED TO PERSON, PLACE, APPROXIMATE TIME. ORIENTED TO SITUATION. RESPS EASY AND EVEN ON ROOM AIR. MOOD APPEARS STABLE THIS AM WITH APPROPRIATE AFFECT. SPEECH IS SOFT, COHERENT, ABLE TO MAKE NEEDS KNOWN WITHOUT DIFFICULTY. PT DENIES SI/HI, INTENT OR PLAN. PT DENIES HALLUCINATIONS, NO RESPONSE TO INTERNAL STIMULI NOTED. PT IS CALM, PLEASANT AND COOPERATIVE. INTERACTS WELL WITH STAFF AND PEERS. PT STATES SHE IS A LITTLE ANXIOUS BUT EXCITED ABOUT GOING HOME TODAY, PT STATES SHE FEELS MUCH BETTER THAN SHE DID UPON ADMISSION TO THE UNIT. PLAN TO ASSIST PT IN PREPARING FOR HOSPITAL DISCHARGE THIS DATE. SEE [facility] FLOWSHEET FOR SPECIFIC MONITORING.
--- NOTE | 2019-09-06 10:07 | NUR ---
, AND TEAM ON UNIT TO SEE PT AT THIS TIME. MADE AWARE OF DISCHARGE FOR TODAY WITH TRANSFER AND PUMPHOUSE OPERATOR CHIEF TIME AROUND 11:30.
[2019-09-06] MEDS ORDERED: HYDROXYZINE PAM25 M1 PO (10:08)
[2019-09-06] MEDS ORDERED: RIVASTIGMINE1 EACH T (10:08)
[2019-09-06] MEDS ORDERED: ROZEREM8 MG PO (10:08)
[2019-09-06] MEDS ORDERED: MIRTAZAPINE15 M2 PO (10:08)
[2019-09-06] MEDS ORDERED: FOLGARD TABLET1 EACH PO (10:53)
[2019-09-06] MEDS ORDERED: NAMENDA-5 PO (10:53)
[2019-09-06] MEDS ORDERED: MIRALAX POWDER17 G1 PO (10:53)
--- NOTE | 2019-09-06 11:10 | NUR ---
Individual time with pt this AM. Pt voiced excitement about her discharge scheduled for today. Pt continued that she didn't want to come to [facility], but she is glad that she did. Pt stated that she feels much better and has made new friends. Pt spoke about her personal values and that of her family. 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 Pt spoke about her current support system - her daughter, her siblings, her neighbor, and her neighbor's daughters. Pt was displaying a full affect. She currently is denying depression and anxiety. Pt is future-oriented as she speaks of plans with her dog and visiting with family and neighbors.
--- NOTE | 2019-09-06 11:41 | NUR ---
PT DISCHARGED TO HOME AT THIS TIME VIA PRIVATE VEHICLE WITH PT'S DAUGHTER. DISCHARGE INSTRUCTIONS REVIEWED WITH PT PRIOR TO DISCHARGE, COPIES OF MEDICATION LIST AND FOLLOW UP APPOINTMENTS GIVEN TO PT'S DAUGHTER AT THE PT'S REQUEST. ALL PERSONAL BELONGINGS RETURNED TO PT. PT LEFT THE UNIT IN STABLE CONDITION AT 1141 VIA WHEELCHAIR ESCORT WITH [facility] MENTAL HEALTH WORKER.
--- NOTE | 2019-09-06 13:29 | NUR ---
Patient discharged today to home alone. Follow-up will be with [facility]. While at [facility], pt's mood improved and anxiety decreased. Pt was pleasand and cooperative with staff and peers. Pt was encouraged to also follow-up with counseling and/or a grief support group. Pt denied the need for this. Pt did participate in programming.
== END 2019-09-06 11:41 | disposition home or self-care (01) | DRG 885 ==
LOC: 3N 15:20
PROVIDERS: Family Medicine; ADMIT Psychiatry & Neurology Psychiatry
DX: F33.2 Major depressive disorder, recurrent severe without psychotic features (principal); F41.9 Anxiety disorder, unspecified; I10 Essential (primary) hypertension; E78.5 Hyperlipidemia, unspecified; E55.9 Vitamin D deficiency, unspecified; D64.9 Anemia, unspecified; E87.8 Other disorders of electrolyte and fluid balance, not elsewhere classified; K57.30 Diverticulosis of large intestine without perforation or abscess without bleeding; E53.8 Deficiency of other specified B group vitamins; D72.819 Decreased white blood cell count, unspecified; Z90.49 Acquired absence of other specified parts of digestive tract; Z90.710 Acquired absence of both cervix and uterus; Z88.6 Allergy status to analgesic agent; Z88.8 Allergy status to other drugs, medicaments and biological substances; Z82.49 Family history of ischemic heart disease and other diseases of the circulatory system; Z88.1 Allergy status to other antibiotic agents; Z88.5 Allergy status to narcotic agent

== ENCOUNTER 2019-10-30 07:23 | Inpatient (IN) | payer MEDICARE ==
[~2019-10-30] VITALS: Ht 162.5 cm; Wt 67.6 kg
[~2019-10-30 07:23] MED LIST changes: +FOLGARD TABLET1 EACH PO; +HYDROXYZINE PAM25 M1 PO; +MIRALAX POWDER17 G1 PO; +NAMENDA-5 PO; +RIVASTIGMINE1 EACH T; +ROZEREM8 MG PO
[2019-10-30 07:28] VITALS: BP 134/47
[2019-10-30 08:36] LABS: HEMATOCRIT 35.1 % (37.0-47.0); HEMOGLOBIN 11.3 g/dl (12.0-16.0); MEAN CELL VOLUME 90.7 fl (81.0-99.0); MEAN CORPUSCULAR HGB 29.2 pg (27.0-31.0); MEAN CORPUSCULAR HGB CONC 32.2 g/dl (33.0-37.0); MEAN PLATELET VOLUME 10.8 fl (9.6-12.3); PLATELET COUNT AUTOMATED 208 10*3/uL (130-400); RED BLOOD COUNT 3.87 10*6/uL (4.10-5.10); RED CELL DISTRI WIDTH 14.9 % (0-14.5); WHITE BLOOD COUNT 5.8 10*3/uL (4.8-10.8)
[2019-10-30 08:47] LABS: ACT PARTIAL THROMBO TIME 30.4 SECONDS (20.0-32.1); INTERNATIONAL NORM RATIO 1.1 (2.0-3.5)
[2019-10-30 08:52] LABS: ALBUMIN 3.3 gm/dl (3.1-4.5); CREATININE 1.47 mg/dL (0.55-1.02); POTASSIUM 3.9 mmol/L (3.5-5.1); TOTAL PROTEIN 6.6 gm/dL (6.4-8.2)
[2019-10-30 08:57] LABS: TROPONIN I 0.051 ng/ml (<0.045)
[2019-10-30 08:59] LABS: BURR CELLS FEW; PLATELET SUFFICIENCY NORMAL (NORMAL); SCHISTOCYTES FEW; TOTAL CELLS COUNTED 100 #CELLS
[2019-10-30 09:31] LABS: BILIRUBIN NEGATIVE (NEGATIVE); BLOOD NEGATIVE (NEGATIVE); CLARITY CLOUDY (CLEAR); COLOR YELLOW (YELLOW); GLUCOSE NEGATIVE (NEGATIVE); KETONE NEGATIVE (NEGATIVE); LEUKO ESTERASE 2+ (NEGATIVE); NITRITE NEGATIVE (NEGATIVE); PH 7.5 (5.0-9.0); UROBILINOGEN 0.2 E.U./dl (0.2-1.0)
[2019-10-30 09:37] LABS: BACTERIA 3+; WBC TNTC wbc/hpf (0-5)
[2019-10-30 10:15] VITALS: BP 104/79; BP 107/79
--- NOTE | 2019-10-30 10:38 | NUR ---
The assessment has been completed. BENITO KO Time: 1015 A 74 year old FEMALE admitted to under services of BARNEY PENNINGTON DO, Pt. arrived via ambulatory from ER. Chief complaint: GENERALIZED WEAKNESS AND FATIGUE. SOB AT TIMES. TEMP 102. BENITO KO
[2019-10-30] MEDS ORDERED: TYLENOL325 M1 PO (11:02)
[2019-10-30] MEDS ORDERED: IRON325 M1 PO (11:02)
[2019-10-30] MEDS ORDERED: IMDUR SA60 MG PO (11:04)
[2019-10-30] MEDS ORDERED: NITROSTAT0.4 MG SL (11:04)
[2019-10-30] MEDS ORDERED: EXELON1 EACH TD (11:05)
[2019-10-30] MEDS ORDERED: ROZEREM8 MG PO (11:06)
--- NOTE | 2019-10-30 12:00 | NUR ---
PATIENT AWAKE, ALERT AND ORIENTED. NO STATED COMPLAINTS AT THIS TIME. PT DENIES PAIN. RESPIRATIONS ARE EASY AND REGULAR. COUGH NOTED. DAUGHTER AT BEDSIDE. BED IN LOWEST LOCKED POSITION AND CALL LIGHT WITHIN REACH. WILL CONTINUE TO MONITOR.
--- NOTE | 2019-10-30 14:25 | NUR ---
PT ALERT AND ORIENTED. NO STATED COMPLAINTS. DENIES PAIN AT THIS TIME. DAUGHTER AT BEDSIDE. NO DISTRESS NOTED. CALL LIGHT WITHIN REACH.
[2019-10-30 20:00] VITALS: BP 137/62
[2019-10-31] VITALS: BP 120/50
[2019-10-31 06:40] LABS: BASO % 0.2 % (0.0-1.0); EOS % 0.2 % (1.0-4.0); LYMPH # 1.8 10*3/uL (1.3-4.4); MEAN CELL VOLUME 91.6 fl (81.0-99.0); MEAN CORPUSCULAR HGB 29.6 pg (27.0-31.0); MEAN CORPUSCULAR HGB CONC 32.4 g/dl (33.0-37.0); MEAN PLATELET VOLUME 11.1 fl (9.6-12.3); MONO # 0.4 10*3/uL (0.1-1.0); MONO % 10.4 % (3.0-9.0); NEUT # 1.8 10*3/uL (2.3-7.9); PLATELET COUNT AUTOMATED 179 10*3/uL (130-400); RED BLOOD COUNT 3.71 10*6/uL (4.10-5.10); RED CELL DISTRI WIDTH 15.1 % (0-14.5); WHITE BLOOD COUNT 4.1 10*3/uL (4.8-10.8)
[2019-10-31 07:08] LABS: ALBUMIN 2.8 gm/dl (3.1-4.5); CREATININE 1.23 mg/dL (0.55-1.02); PHOSPHOROUS 2.2 mg/dL (2.5-4.9); POTASSIUM 3.9 mmol/L (3.5-5.1); TOTAL PROTEIN 6.1 gm/dL (6.4-8.2)
[2019-10-31 08:00] VITALS: BP 148/61
--- NOTE | 2019-10-31 09:00 | NUR ---
Showroom Salesperson in to talk to patient. Patient states lives at home with alone. There are 5 steps in the home. Physician: donna rivers [facility]acy: [facility] Home health services: none Patient's level of ADLs: INDEPENDENT Patient has working utilities: all working DME: cane Follow-up physician's appointment after d/c: will be made by hospitalist nurse director upon discharge Does patient want to access PORTAL?: no Discharge plan discussed with patient, she states she lives at home alone, she is independent in adls and ambulation, drives, she states she has 5 steps to her basement and doesn't have any difficulty with them, she stated she will return home when medically stable. discussed with her VNA and educated her on the services they provide, she stated she was familiar with VNA and their services and doesn't feel she needs any at this time, case management will follow. TARYN ZURITA
[2019-10-31] MEDS ORDERED: TAMIFLU30 MG PO (10:04)
[2019-10-31] MEDS ORDERED: OMNICEF300 MG PO (10:09)
--- NOTE | 2019-10-31 11:09 | NUR ---
Physical Therapy evaluation completed on 4th floor with full evaluation to follow. Recommend physical therapy per plan of care and home with HH/support services and family assist upon discharge. Thank you for this referral. Elizabeth May PT
[2019-10-31 12:00] VITALS: BP 138/93
--- NOTE | 2019-10-31 14:06 | NUR ---
AWAITING RIDE HOME DISCHARGED INSTRUCTIONS NOT GIVEN YET
--- NOTE | 2019-10-31 15:48 | NUR ---
Discharge instructions reviewed with patient. Patient receptive and verbalizes understanding. Follow-up care arranged. Written instructions given to patient. GLENN PARIKH
--- NOTE | 2019-10-31 16:08 | NUR ---
[facility], ACCOMPANIED BY [facility], FOR TRANSPORT HOME BY PRIVATE VEHICLE WITH DAUGHTER.
== END 2019-10-31 15:48 | disposition home or self-care (01) | DRG 194 ==
LOC: ED 07:23 → EDHOLD 09:47 → 4E 09:47
PROVIDERS: Emergency Medicine; Student in an Organized Health Care Education/Training Program; ADMIT Internal Medicine
DX: J10.1 Influenza due to other identified influenza virus with other respiratory manifestations (principal); N39.0 Urinary tract infection, site not specified; F33.9 Major depressive disorder, recurrent, unspecified; I25.810 Atherosclerosis of coronary artery bypass graft(s) without angina pectoris; E44.1 Mild protein-calorie malnutrition; R53.1 Weakness; E87.8 Other disorders of electrolyte and fluid balance, not elsewhere classified; R73.9 Hyperglycemia, unspecified; K57.90 Diverticulosis of intestine, part unspecified, without perforation or abscess without bleeding; R74.0 Nonspecific elevation of levels of transaminase and lactic acid dehydrogenase [LDH]; F41.9 Anxiety disorder, unspecified; E78.5 Hyperlipidemia, unspecified; E66.3 Overweight; E55.9 Vitamin D deficiency, unspecified; D64.9 Anemia, unspecified; N18.3 Chronic kidney disease, stage 3 (moderate); I12.9 Hypertensive chronic kidney disease with stage 1 through stage 4 chronic kidney disease, or unspecified chronic kidney disease; Z88.2 Allergy status to sulfonamides; Z88.8 Allergy status to other drugs, medicaments and biological substances; Z88.1 Allergy status to other antibiotic agents; Z88.6 Allergy status to analgesic agent; Z87.442 Personal history of urinary calculi; Z90.49 Acquired absence of other specified parts of digestive tract; Z90.710 Acquired absence of both cervix and uterus; Z98.891 History of uterine scar from previous surgery; Z95.1 Presence of aortocoronary bypass graft; Z82.49 Family history of ischemic heart disease and other diseases of the circulatory system; Z83.3 Family history of diabetes mellitus; Z79.82 Long term (current) use of aspirin; Z79.899 Other long term (current) drug therapy; Z68.25 Body mass index [BMI] 25.0-25.9, adult